=== PATIENT | female | born 1940 | race Caucasian/White ===

== ENCOUNTER 2020-04-24 07:20 | Day surgery (SDC) | payer MEDICARE, MEDICAID ==
[~2020-04-24] VITALS: Ht 162.6 cm; Wt 56.2 kg
[2020-04-24] MEDS ORDERED: albumin 25% 100mL bottle x 1 IV PRN (07:55)
[2020-04-24] MEDS ORDERED: normal saline 1000ml 1,000 ML IV PRN (07:55)
[2020-04-24] MEDS ORDERED: SERT100T PO (08:02)
[2020-04-24 08:40] VITALS: BP 142/53
[2020-04-24 08:46] VITALS: BP 142/53
[2020-04-24 08:50] VITALS: BP 134/70
== END 2020-04-24 08:50 | disposition home or self-care (01) ==
LOC: SSTAY O 07:20
PROVIDERS: ATTEND Radiology Diagnostic Radiology
DX: R18.8 Other ascites (principal); Z53.8 Procedure and treatment not carried out for other reasons; C09.9 Malignant neoplasm of tonsil, unspecified; Z79.899 Other long term (current) drug therapy
CPT/HCPCS: 76705